=== PATIENT | female | born 1960 | race Caucasian/White ===

== ENCOUNTER 2016-12-09 07:14 | Day surgery (SDC) | payer OTHER ==
[~2016-12-09] VITALS: Ht 162.6 cm; Wt 73.5 kg
[2016-12-09] MEDS ORDERED: GARCINIA CAMBO1 EACH PO (07:48)
[2016-12-09] MEDS ORDERED: VITAMIN B COMP1 EACH PO (07:49)
[2016-12-09] MEDS ORDERED: CITRACAL + BON1 EACH PO (07:49)
[2016-12-09] MEDS ORDERED: L-LYSINE500 M1 PO (07:49)
[2016-12-09] MEDS ORDERED: GARLIC1 EAC1 PO (07:50)
[2016-12-09] MEDS ORDERED: VITAMIN E400 UNI6 PO (07:50)
[2016-12-09] MEDS ORDERED: FISH OIL 1,001000 MG PO (07:50)
[2016-12-09] MEDS ORDERED: IBUPROFEN200 M1 PO (07:50)
--- NOTE | 2016-12-09 09:35 | NUR ---
12/09/16 0935 Mayra Diego 0934 PATIENT ARRIVES TO PACU SLEEPING, OPENS EYES TO VERBAL STIMULI, DENIES PAIN, THEN BACK TO SLEEP. RESP EVEN AND UNLABORED, NC AT 2 LITERS. PASSING GAS.
--- NOTE | 2016-12-10 21:35 | OR ---
[facility] [address], [place] [address] Signed DATE OF PROCEDURE: 12/09/16 PREOPERATIVE DIAGNOSES Screening. Hemorrhoids. POSTOPERATIVE DIAGNOSIS Minimal internal hemorrhoids. PROCEDURE: Colonoscopy without biopsy. ESTIMATED BLOOD LOSS: None. INDICATIONS Isac is a 56-year-old female who was asked to see me for her initial screening colonoscopy. She has no lower GI complaints. She is pretty certain she has some hemorrhoids. There is no family history of colon cancer or polyps. I have given her a pamphlet in the office on colonoscopy and we discussed the nature of the test along with the risks including, but not limited to gas bloating, crampy abdominal pain, bleeding, perforation requiring surgery, and missed diagnosis. She also understands the need for IV conscious sedation. She expressed understanding and wished to proceed. PROCEDURE Isac was taken into our endoscopy suite and placed in the left lateral decubitus position. She was given divided doses of 5 mg of Versed and 100 mcg of Fentanyl for the procedure. A digital rectal exam was performed. She has very minimal external hemorrhoids. The adult colonoscope was introduced and advanced all around into the cecum under direct visualization of camera without difficulty. Her prep was good. The scope was then slowly withdrawn. We saw no pathology throughout the entire colon or rectum. Upon retroflexion of scope, she has minimal internal hemorrhoid tissue as well. After this, the gas was suctioned out. The colonoscope removed. Isac tolerated the procedure quite well. RECOMMENDATIONS Isac can follow up in 10 years for repeat colonoscopy. Jennifer Sousa MD AB/[facility] Electronically Signed By: JENNIFER SOUSA MD 12/10/16 2135 PATIENT NAME: ISAC MCLAUGHLIN OPERATIVE REPORT DATE OF : 58 PHYSICIAN: JENNIFER SOUSA MD REPORT #: [id number] REPORT IS CONFIDENTIAL AND NOT TO BE RELEASED WITHOUT AUTHORIZATION [address] [address] Signed /[id number] cc: William Zarate MD Electronically Signed By: JENNIFER SOUSA MD 12/10/16 2135 PATIENT NAME: ISAC MCLAUGHLIN OPERATIVE REPORT DATE OF : 58 PHYSICIAN: JENNIFER SOUSA MD REPORT #: [id number] REPORT IS CONFIDENTIAL AND NOT TO BE RELEASED WITHOUT AUTHORIZATION
== END 2016-12-09 10:10 | disposition home or self-care (01) ==
LOC: DS 07:14
PROVIDERS: Colon & Rectal Surgery
PROC: 0DJD8ZZ Inspection of Lower Intestinal Tract, Via Natural or Artificial Opening Endoscopic (ICD-10-PCS; principal; 2016-12-09 09:45)
DX: Z12.11 Encounter for screening for malignant neoplasm of colon (principal); K64.8 Other hemorrhoids; F32.9 Major depressive disorder, single episode, unspecified; Z98.51 Tubal ligation status; Z87.891 Personal history of nicotine dependence; Z88.0 Allergy status to penicillin
CPT/HCPCS: 99152; 99153; J2250; J3010; J7120